=== PATIENT | female | born 1985 | race Caucasian/White ===

== ENCOUNTER 2017-03-15 09:57 | Emergency (ER) | payer OTHER ==
[2017-03-15 10:40] LABS: BASOPHIL 0.1 % (0-2); EOSINOPHIL 0 % (0-5); HCT 36.4 % (37.0-47.0); HGB 12.6 g/dl (12.5-16.0); LYMPHOCYTE 9.8 % (15-48); MCHC 34.6 g/dL (32.0-36.0); MCV 95.3 fL (78.0-100.0); MPV 10.2 fL (6.0-9.5); NEUTROPHIL 85.1 % (41-80); PLT 253 K/uL (150-400); RBC 3.82 M/uL (4.20-5.40); RDW 12.6 % (11.5-14.0); WBC 10.7 K/uL (4.0-10.5)
[2017-03-15 10:47] LABS: BILIRUBIN 1+ mg/dL (NEGATIVE); BLOOD TRACE-LYSED Ery/uL (NEGATIVE); CLARITY CLEAR (CLEAR); COLOR YELLOW (YELLOW); GLUCOSE (U) NORMAL (NORMAL); KETONE (U) 1+ (SMALL) mg/dL (NEGATIVE); LEUKOCYTES NEGATIVE Leu/uL (NEGATIVE); NITRITE NEGATIVE (NEGATIVE); PROTEIN 1+ mg/dL (NEGATIVE)
[2017-03-15 10:48] LABS: BACTERIA TRACE; URINARY RBC RARE; URINARY WBC RARE
[2017-03-15 13:05] LABS: AMYLASE 27 U/L (28-100); LIPASE 25 U/L (13-60)
[2017-03-15 13:09] LABS: ALBUMIN 4.1 g/dL (3.5-5.0); BILIRUBIN - TOTAL 0.2 mg/dL (0.1-1.0); CREATININE 0.7 mg/dL (0.5-1.0); GLOBULIN (CALCULATION) 2.8 g/dL (2.2-4.2); POTASSIUM 3.6 mmol/L (3.5-5.1); TOTAL PROTEIN 6.9 g/dL (6.4-8.3)
== END 2017-03-15 14:38 | disposition home or self-care (01) ==
LOC: FER 09:57
PROVIDERS: Emergency Medicine; Nurse Practitioner Family
DX: J06.9 Acute upper respiratory infection, unspecified (principal); N23 Unspecified renal colic; E03.9 Hypothyroidism, unspecified; F17.210 Nicotine dependence, cigarettes, uncomplicated; Z88.0 Allergy status to penicillin; Z79.899 Other long term (current) drug therapy
CPT/HCPCS: 36415; 71020; 80053; 81001; 82150; 83690; 85025; 87450; 87804; 87899; J1885; J2405; J2765

== ENCOUNTER 2017-03-16 20:34 | Emergency (ER) | payer OTHER ==
[2017-03-16 21:46] LABS: BASOPHIL 0.1 % (0-2); EOSINOPHIL 0 % (0-5); HCT 32.8 % (37.0-47.0); HGB 11.4 g/dl (12.5-16.0); LYMPHOCYTE 15.6 % (15-48); MCHC 34.8 g/dL (32.0-36.0); MCV 95.1 fL (78.0-100.0); MONOCYTE 4.1 % (0-12); MPV 10.1 fL (6.0-9.5); NEUTROPHIL 80.2 % (41-80); PLT 228 K/uL (150-400); RBC 3.45 M/uL (4.20-5.40); RDW 12.6 % (11.5-14.0); WBC 7.9 K/uL (4.0-10.5)
[2017-03-16 21:46] LABS: BILIRUBIN NEGATIVE (NEGATIVE); BLOOD TRACE-INTACT Ery/uL (NEGATIVE); CLARITY CLEAR (CLEAR); COLOR YELLOW (YELLOW); GLUCOSE (U) NORMAL (NORMAL); KETONE (U) NEGATIVE (NEGATIVE); LEUKOCYTES NEGATIVE Leu/uL (NEGATIVE); NITRITE NEGATIVE (NEGATIVE); PROTEIN NEGATIVE (NEGATIVE); UROBILINOGEN 0.2 mg/dL (0.2-1.0)
[2017-03-16 21:51] LABS: SQUAMOUS EPITHELIAL CELLS RARE; URINARY RBC RARE
[2017-03-16 21:58] LABS: INR 1.21 (0.9-1.2); PROTHROMBIN TIME 14.9 SECONDS (11.7-14.0); PTT 29.1 SECONDS (23.2-31.4)
[2017-03-16 22:03] LABS: LACTIC ACID 1.2 mmol/L (0.5-2.2)
[2017-03-16 22:05] LABS: CREATININE 0.8 mg/dL (0.5-1.0); POTASSIUM 3.3 mmol/L (3.5-5.1)
[2017-03-16 23:41] LABS: CLARITY (FLUID) CLEAR; COLOR (FLUID) COLORLESS; RBC (FLUID) 2 u/L; WBC (FLUID) 0 u/L
== END 2017-03-17 02:00 | disposition home or self-care (01) ==
LOC: FER 20:34
PROVIDERS: Emergency Medicine
DX: G43.909 Migraine, unspecified, not intractable, without status migrainosus (principal); J18.9 Pneumonia, unspecified organism; R10.84 Generalized abdominal pain; J45.909 Unspecified asthma, uncomplicated; R82.90 Unspecified abnormal findings in urine; F17.210 Nicotine dependence, cigarettes, uncomplicated; Z88.0 Allergy status to penicillin; Z79.84 Long term (current) use of oral hypoglycemic drugs
CPT/HCPCS: 36415; 70450; 71010; 80048; 81001; 82945; 83605; 84155; 85025; 85610; 85730; 87040; 87070; 87088; 87205; 89051; J1885; J2405